=== PATIENT | female | born 1995 | race Two or more races ===

== ENCOUNTER 2016-11-02 03:41 | Emergency (ER) | payer OTHER ==
--- NOTE | 2016-11-02 03:49 | EDPHY ---
H & P Stated Complaint: heart beating fast, vomiting, SOB HPI/ROS: HPI CHIEF COMPLAINT: Possible overdose, anxiety HISTORY OF PRESENT ILLNESS: This patient is a very pleasant 21-year-old female no significant medical history, she recently had her wisdom tooth removed and she has been taking extra-strength pain away. She comes to the emergency room by private vehicle with mom at a concerned she may have overdosed on this pain medicine. She tells me at 10:00 p.m. she took 1 packet of pain away and then around 1:00 a.m. she took another packet. She did provide a packet here in the emergency room the pain away packets shows each packet contains 2 tablets and each tablet contains acetaminophen of 250 mg aspirin 250 mg and caffeine 65 mg. She tells me she took 2 packets or total of 4 tablets. She states she initially took this at 10:00 p.m. and then again at 1 :00 a.m. Patient complains of anxiety and racing heart. Denies chest pain or shortness of breath. Past Medical History: Denies medical history Past Surgical History: Recent wisdom tooth removal Social History: Denies daily use of drugs alcohol tobacco products did have 1 alcoholic beverage tonight. Family History: Noncontributory ROS REVIEW OF SYSTEMS: A comprehensive 10 point review of systems is otherwise negative aside from elements mentioned in the history of present illness. Exam Constitutional appears anxious, triage nursing summary reviewed, vital signs reviewed, awake/alert. Eyes normal conjunctivae and sclera, EOMI, PERRLA. HENT normal inspection, atraumatic, moist mucus membranes, no epistaxis, neck supple/ no meningismus, no raccoon eyes. Respiratory clear to auscultation bilaterally, normal breath sounds, no respiratory distress, no wheezing. Cardiovascular rate normal, regular rhythm, no murmur, no edema, distal pulses normal. Gastrointestinal soft, non-tender, no rebound, no guarding, normal bowel sounds, no distension, no pulsatile mass. Genitourinary no CVA tenderness. Musculoskeletal no midline vertebral tenderness, full range of motion, no calf swelling, no tenderness of extremities, no meningismus, good pulses, neurovascularly intact. Skin pink, warm, & dry, no rash, skin atraumatic. Neurologic awake, alert and oriented x 3, AAOx3, moves all 4 extremities equally, motor intact, sensory intact, CN II-XII intact, normal cerebellar, normal vision, normal speech. Psychiatric normal mood/affect. Heme/Lymph/Immune no lymphadenopathy. Differential Diagnosis: Includes but is not limited to in a particular order acute anxiety, caffeine at causing increased heart rate. No evidence of acetaminophen or salicylate overdose based on the quantity she is provided and time of ingestion. However she states that she ingested this at 10:00 p.m. and then again at 1:00 a.m.. Will check acetaminophen and salicylate level. Patient is adamant that she only took 2 packets or for pills denies other coingestion search taking more than this. Medical Decision Making: Plan for this patient blood draw, EKG, acetaminophen and level, salicylate level. Re-evaluation: If all these markers are normal and she appears well and feels well I will allow her to be discharged home. EKG interpretation by me on record in [employer] system. Impression time of EKG 4:10 a.m., sinus rhythm rate of 81, no prolonged intervals. No signs of acute ischemia. No signs of cardiac arrhythmia. Unremarkable EKG. 1631: Salicylate and seen medicine level reviewed. Not toxic. These will be over 4 hour level. Acetaminophen is less than 10, salicylate level is 10. Feel comfortable with this patient being discharged based on her history and review of systems. Shortly tells me she took 2 packets with for total 4 pills. Not a toxic ingestion. She understands return emergency room if develops any worsening symptoms includes anxiety, chest pain, shortness of breath, abdominal pain nausea vomiting Source: Patient - Personal History LMP (Females 10-55): 22-28 Days Ago - Medical/Surgical History Hx Asthma: No Hx Chronic Respiratory Disease: No Hx Diabetes: No Hx Cardiac Disease: No Hx Renal Disease: No Hx Cirrhosis: No Hx Alcoholism: No Hx HIV/AIDS: No Hx Splenectomy or Spleen Trauma: No - Social History Smoking Status: Never smoked Constitutional: Initial Vital Signs Temperature (C) 36.9 C 11/02/16 03:45 Heart Rate 85 11/02/16 03:45 Respiratory Rate 20 11/02/16 03:45 Blood Pressure 119/72 11/02/16 03:45 O2 Sat (%) 98 11/02/16 03:45 O2 Delivery Mode Room Air Allergies/Adverse Reactions: No Known Allergies Allergy (Unverified 11/02/16 03:44) Home Medications: Medication Instructions Recorded VITAMIN D 11/02/16 Medical Decision Making - Data Points Laboratory Results: Laboratory Results 11/02/16 04:05 11/02/16 04:05 Turbidity Cancelled Sodium Cancelled Potassium Cancelled Chloride Cancelled Carbon Dioxide Cancelled Anion Gap Cancelled BUN Cancelled Creatinine Cancelled Estimated GFR Cancelled Glucose Cancelled Calcium Cancelled Total Bilirubin Cancelled AST Cancelled ALT Cancelled Alkaline Phosphatase Cancelled Total Protein Cancelled Albumin Cancelled Specimen Hemolysis Cancelled Salicylates 10.3 mg/dL mg/dL (2.0-20.0) Acetaminophen < 10 mcg/mL L mcg/mL (10.0-30.0) Departure - Departure Disposition: Home, Routine, Self-Care Clinical Impression: Anxiety Condition: Good Instructions: Anxiety (ED) Additional Instructions: 1. Drink lots of fluids stay stay well-hydrated. 2. Return emergency room if you have any worsening symptoms questions or concerns. Referrals: [facility] [Other] - As per Instructions
[2016-11-02 04:27] LABS: SALICYLATE 10.3 mg/dL (2.0-20.0)
[2016-11-02] MEDS ORDERED: ONDANSETRON DISINTEGRATING 4 MG TAB ONE (04:41)
[2016-11-02] MEDS ORDERED: ONDANSETRON DISINTEGRATING 4 MG TAB PO ONE (04:46)
[2016-11-02 05:00] VITALS: BP 121/67; PULSE 78; RESP 16; TEMP 98.1; O2SAT 97
--- NOTE | 2016-11-02 05:04 | CPEKG ---
Heart Rate: 81 RR Interval: 741 P-R Interval: 144 QRSD Interval: 90 QT Interval: 388 QTC Interval: 451 P [place]: 56 QRS [place]: 60 T Wave [place]: -1 EKG Severity - NORMAL ECG - EKG Impression: SINUS RHYTHM Electronically Signed By: Adela Baez 03-Nov-2016 11:50:32
== END 2016-11-02 04:59 | disposition home or self-care (01) ==
DX: F41.9 Anxiety disorder, unspecified (principal)
CPT/HCPCS: G0480

== ENCOUNTER 2017-01-01 01:04 | Emergency (ER) | payer OTHER ==
[2017-01-01 01:10] VITALS: RESP 16; TEMP 98.1; O2SAT 97
--- NOTE | 2017-01-01 02:38 | EDPHY ---
H & P Stated Complaint: N/V, difficulty swallowing/breathing Time Seen by Provider: 01/01/17 01:47 HPI/ROS: Chief Complaint: Possible allergic reaction HPI: 21-year-old female had the sensation of tightness in her throat after she ate peanut butter at 10 o'clock tonight. Patient states that she felt very dry in her mouth and felt like she could not swallow. Has eaten peanut butter multiple times in the past has never had any problems. Father gave her 2 Benadryl at home. Patient states she is feeling improved. Did not have any itching. No cough. Did have 1 episode of vomiting. No rash. ROS: 10 point Review of Systems is negative except as noted in the HPI. PMH: Vitamin-D deficiency Social History: No smoking, no alcohol, no recreational drug use Family History: non-contributory Physical Exam: Gen: Awake, Alert, No Distress HEENT: Nose: no rhinorrhea Eyes: PERRLA, EOMI Mouth: Moist mucosa oropharynx is normal, there is no edema, there is no erythema, there is no discharge, uvula is midline Neck: Supple, no JVD, no submandibular tenderness. No paratracheal edema. Nontender Chest: nontender, lungs clear to auscultation Heart: S1, S2 normal, no murmur Abd: Soft, non-tender, no guarding Back: no CVA tenderness, no midline tenderness Ext: no edema, non-tender Skin: no rash Neuro: CN II-XII intact, Sensation grossly intact, Strength 5/5 in bilateral upper and lower extremities - Personal History LMP (Females 10-55): 1-7 Days Ago Current Tetanus/Diphtheria Vaccine: Unsure Current Tetanus Diphtheria and Acellular Pertussis (TDAP): Unsure - Medical/Surgical History Hx Asthma: No Hx Chronic Respiratory Disease: No Hx Diabetes: No Hx Cardiac Disease: No Hx Renal Disease: No Hx Cirrhosis: No Hx Alcoholism: No Hx HIV/AIDS: No Hx Splenectomy or Spleen Trauma: No Other PMH: denies - Social History Smoking Status: Never smoked Constitutional: Initial Vital Signs Temperature (C) 36.7 C 01/01/17 01:05 Heart Rate 93 01/01/17 01:05 Respiratory Rate 16 01/01/17 01:05 Blood Pressure 124/93 H 01/01/17 01:05 O2 Sat (%) 97 01/01/17 01:05 O2 Delivery Mode Room Air Allergies/Adverse Reactions: No Known Allergies Allergy (Unverified 11/02/16 03:44) Home Medications: Medication Instructions Recorded VITAMIN D 11/02/16 Medical Decision Making ED Course/Re-evaluation: Patient has been observed in the emergency department had no further problems. She has a possible allergic reaction but I think it is more likely secondary to difficulty swallowing the peanut butter. She is very well-appearing now. I have cautioned her to not eat any not products until she has been fully allergy tested. She continue taking Benadryl. Return for worsening. Follow-up with primary care physician in 2-3 days. Departure - Departure Disposition: Home, Routine, Self-Care Clinical Impression: Allergic reaction Condition: Good Instructions: Food Allergy (ED) Additional Instructions: Do not eat any nuts until you have been allergy tested. Follow up with primary care physician in 2-3 days. Return emergency depart for increasing swelling, difficulty swallowing, fevers, chills, or any other concerns. Referrals: [facility] [Other] - As per Instructions
[2017-01-01 02:43] VITALS: BP 118/65; PULSE 88
== END 2017-01-01 02:49 | disposition home or self-care (01) ==
DX: T78.1XXA Other adverse food reactions, not elsewhere classified, initial encounter (principal); Z91.010 Allergy to peanuts